=== PATIENT | female | born 1985 | race Caucasian/White ===

== ENCOUNTER 2018-09-27 12:35 | Emergency (ER) | payer BC ==
[2018-09-27 12:50] VITALS: BMI 27.1
[2018-09-27] MEDS ORDERED: Betamethasone Soluspan 30 mg/5mL Inj Susp IM ONE (12:50)
[2018-09-27 19:25] VITALS: TEMP 97.9
== END 2018-09-27 13:45 | disposition home or self-care (01) ==
LOC: H.EROB2 12:35
DX: O09.93 Supervision of high risk pregnancy, unspecified, third trimester (principal); Z23 Encounter for immunization; Z3A.36 36 weeks gestation of pregnancy
CPT/HCPCS: 96372; 99283; J0702

== ENCOUNTER 2018-10-04 04:08 | Inpatient (IN) | payer BC ==
[2018-10-04] MEDS: Lactated Ringer's 1,000 ML IV ONE ×2 (04:35→05:00)
[2018-10-04] MEDS ORDERED: ceFAZolin 1 GM in Sodium Chloride 0.9% 100 ML IVPB ONE (04:38)
[2018-10-04] MEDS ORDERED: OXYTOCIN/0.9 % NS 20 UNIT/1,000 ML BAG IV ONE (04:42)
[2018-10-04] MEDS ORDERED: Oxytocin 30 UNIT 30 UNITS/500 ML BAG IV ONE (04:42)
[2018-10-04 05:06] LABS: BASO % 0.4 % (0.0-2.0); EOS # 0.1 K/uL (0.0-0.7); EOS % 1.1 % (0.0-4.0); HEMOGLOBIN 13.5 g/dL (12.0-16.0); LYMPH # 2.4 K/uL (1.0-4.3); LYMPH % 23.4 % (20.0-40.0); MEAN CELL VOLUME 92.1 fl (81.0-99.0); MEAN CORPUSCULAR HEMOGLOBIN 30.3 pg (27.0-31.0); MEAN PLATELET VOLUME 9.7 fl (7.2-11.7); MONO # 0.6 K/uL (0.0-0.8); MONO % 5.8 % (0.0-10.0); NEUT # 7.1 K/uL (1.8-7.0); NEUT % 69.3 % (50.0-75.0); RBC 4.44 Mil/uL (3.80-5.20); RED CELL DISTRIBUTION WIDTH 13.2 % (11.5-14.5); WHITE BLOOD COUNT 10.3 K/uL (4.8-10.8)
[2018-10-04] MEDS ORDERED: Morphine 1 mg/ml preservative-free Inj(Duramorph) ONE (06:24)
--- NOTE | 2018-10-04 06:26 | OBADHP ---
Datetime: 10/04/2018 06:14 Admit Comment, IP Provider: @ 37.4 wks GA GDMA2 c/o ctx pian over 1 week, worsneing over past 1 day,q 5 min 02/28, sanjana lof, vb, +FM. pt is GDMA 2 on medicaion with icnreasing sughars. pt underwne t recent grwothscan and dx with arrest of growth. pt was evlauted by Navneet counseld fo dleiveyr OB: P0 RATE REVIEWER: denies PMH: GDMA2 PSH: denies FHX: non contibibe MEDS: PNV, metorfim NKDA SHX: negaive x 3 a/p @ 37.4 wks GA GDMA2 early labor for primary elective cxs admit npo, ivf adsison labs contp toco adn efm analgies blodo sticks FHR - Baseline A Provider: 145 Membranes, Provider: Intact Gestation - Est Wks by US: 37.4 IP Hx Assessment: The History has been Reviewed and is Current Vital Signs Provider: Reviewed IP Chief Complaint: Uterine contractions NICHD Variability Prov Fetus A: Moderate 6-25bpm NICHD Accel Fetus A IP Provider: 15X15 Dilatation, Provider: 1-2 Effacement, Provider: 50 Station, Provider: -3 EGA AdmitDate IP: 37.4 IP Adm Impression: Term, intrauterine IP Admit Plan: Admit to unit
[2018-10-04 06:59] LABS: ALB/GLOB RATIO 1.1 (1.0-2.1); ALBUMIN 3.9 g/dL (3.5-5.0); ALT/SGPT 28 U/L (9-52); AST/SGOT 26 U/L (14-36); BLOOD UREA NITROGEN 12 mg/dl (7-17); CALCIUM 10.2 mg/dL (8.4-10.2); GFR NON-AFRICAN AMERICAN > 60
[2018-10-04] MEDS ORDERED: Bisacodyl 5mg EC Tab PO PRN ×2 (07:14→09:42)
[2018-10-04] MEDS ORDERED: Naloxone 0.4 mg/ml Inj (Adult) IVP PRN ×2 (07:14→09:42)
[2018-10-04] MEDS ORDERED: Oxycodone/Acetaminophen 5/325 mg Tab PO PRN ×4 (07:14→09:42)
[2018-10-04] MEDS ORDERED: DiphenhydrAMINE 50 mg/ml Inj IVP PRN ×2 (07:14→09:42)
[2018-10-04] MEDS ORDERED: Multivitamin With Minerals Tab PO SCH (09:00)
[2018-10-04] MEDS ORDERED: Simethicone 80 mg Chewtab PO SCH (10:00)
[2018-10-04] MEDS: Simethicone 80 mg Chewtab PO SCH ×3 (12:00→22:18)
[2018-10-05] MEDS: Simethicone 80 mg Chewtab PO SCH ×4 (04:33→22:27)
[2018-10-05 05:58] LABS: HEMOGLOBIN 11.6 g/dL (12.0-16.0); MEAN CELL VOLUME 92.1 fl (81.0-99.0); MEAN CORPUSCULAR HEMOGLOBIN 29.9 pg (27.0-31.0); MEAN CORPUSCULAR HGB CONC 32.5 g/dL (33.0-37.0); RBC 3.88 Mil/uL (3.80-5.20); RED CELL DISTRIBUTION WIDTH 13.3 % (11.5-14.5); WHITE BLOOD COUNT 14.4 K/uL (4.8-10.8)
[2018-10-05 06:06] LABS: ALBUMIN 2.9 g/dL (3.5-5.0); ALT/SGPT 29 U/L (9-52); AST/SGOT 23 U/L (14-36); BLOOD UREA NITROGEN 6 mg/dl (7-17); CALCIUM 9.2 mg/dL (8.4-10.2); GFR NON-AFRICAN AMERICAN > 60
[2018-10-05] MEDS: Multivitamin With Minerals Tab PO SCH (08:54)
[2018-10-05] MEDS ORDERED: Ammonia 2% Inhalant ONE ×2 (09:56→10:07)
[2018-10-05] MEDS ORDERED: Ammonia 2% Inhalant INH PRN (14:08)
--- NOTE | 2018-10-05 20:10 | OBDS ---
DELIVERY PERSONNEL Delivery Doctor: Hayley Akhtar MD New Accounts Representative: Bailey Garcia RN Anesthesiologist: Dr Matos MATERNAL INFORMATION Delivery Anesthesia: Spinal Medications in Delivery: Ancef 1G Estimated Blood Loss (ml): 800 Placenta Cultured: Yes Maternal Complications: None RN Comments: patient delivered viable female via P c/s. infant was taken to warmer, dried and examin ed by Dr Sadler. infant taken to mother for skin to skin. patient tolerated well. both remained stable and were transferred to labor and delivery for recovery. Provider Comments: PTLCS girl , apargs 9,9 peids prsent for deliveyr nroam uteru, tubes and ovaries LABOR SUMMARY EDC: 10/21/2018 00:00 No. Babies in Womb: 1 LABOR INFORMATION Group B Beta Strep: Negative STAGES OF LABOR Stage 3 hrs: 0 Stage 3 min: 1 CSECTION DELIVERY Primary Indication: IUGR, GDM CSection Urgency: Elective CSection Incidence: Primary Labor: No Labor Elective: Elective CSection Incision: Lower Uterine Transverse BABY A INFORMATION Delivery Date/Time: 10/04/2018 06:47 Method of Delivery: Born in Route : No : N/A Forceps: N/A Vacuum Extraction: N/A Shoulder Dystocia : No SHOULDER DYSTOCIA BABY A Infant Delivery Date/Time: 10/04/2018 06:47 PRESENTATION/POSITION BABY A Presentation: Cephalic PLACENTA INFORMATION BABY A Placenta Delivery Time : 10/04/2018 06:48 Placenta Method of Delivery: Manual Removal Placenta Status: Delivered SCORES BABY A Heart Rate 1 min: >100 bpm Resp Effort 1 min: Good Cry Reflex Irritability 1 min: Cough or Sneeze or Pulls Away Muscle Tone 1 min: Active Motion Color 1 min: Body [place], Extremities Blue Resuscitation Effort 1 min: Tactile Stimulation SCORE 1 MIN: 9 Heart Rate 5 min: >100 bpm Resp Effort 5 min: Good Cry Reflex Irritability 5 min: Cough or Sneeze or Pulls Away Muscle Tone 5 min: Active Motion Color 5 min: Body [place], Extremities Blue Resuscitation Effort 5 min: N/A SCORE 5 MIN: 9 INFORMATION BABY A Gestational Age at Delivery: 37.4 Gestational Status: Term Infant Outcome : Liveborn Condition : Stable Sex: Female WEIGHT/LENGTH BABY A Infant Birthweight (gms): 2450 Weight (lb): 5 Infant Weight (oz): 6 Infant Length Inches: 17.00 Length cms: 43.2 CORD INFORMATION BABY A No. Cord Vessels: 3 Nuchal Cord : N/A Cord Blood Taken: Yes Infant Suction: Mouth
--- NOTE | 2018-10-05 20:12 | OBPPN ---
Datetime: 10/05/2018 20:09 PP Pain Prov: Within normal limits PP Nausea Prov: Denies PP Flatus Prov: Yes PP Breasts Prov: Normal PP Heart Prov: Normal PP Lungs Prov: Normal PP Abdomen/Uterus Prov: Normal PP Lochia Prov: Normal PP Vulva/Perineum Prov: Normal PP CVA Tenderness Prov: Normal PP Extremities Prov: Normal PP C/S Incision Prov: Normal PP Progress Prov: Normal PP Comments Phys Exam Prov: incicsn c/d'/i PP Impression Prov: Normal progression PP Plan Prov: Continue present management Vital Signs Provider PP: Reviewed; Within Normal Limits
--- NOTE | 2018-10-06 02:29 | OP ---
PROCEDURE DATE: 10/04/2018 PREOPERATIVE DIAGNOSES: Term intrauterine , GDMA2, arrest of growth. POSTOPERATIVE DIAGNOSES: Term intrauterine , GDMA2, arrest of growth. PROCEDURE PERFORMED: Primary low-transverse section. SURGEON: Hayley Akhtar MD ANESTHESIA: Spinal. OPERATIVE FINDINGS: Live female infant, Apgars 9 and 9, weight of 5 pounds and 6 ounces. Normal-appearing uterus, tubes, and ovaries. Dr. Dipesh Fernandez, surgical supplies sterilizer, who was present for the entire case and assisted in gaining entry, retraction, exposure, holding the bladder blade, helping the delivery of the baby, closing all layers. ESTIMATED BLOOD LOSS: 800 mL. BLOOD PRODUCTS: None. COMPLICATIONS: None. SPECIMEN: Placenta. DESCRIPTION OF PROCEDURE: The patient was taken to the operating room where she was given spinal anesthesia. Once it was found to be adequate, she was placed on the operating room table in dorsal supine position. The patient was prepped and draped in the usual sterile fashion. A time-out was confirmed correct patient and correct procedure. The patient was given preoperative prophylactic antibiotics. A Pfannenstiel skin incision was made with a scalpel and carried down to the underlying fascia with the Bovie. The fascia was incised in the midline. The incision was extended laterally with the Bovie. The inferior aspect of the fascial incision was grasped with Allis and Rock clamps, and the underlying rectus muscles were dissected off bluntly. Attention was then turned to the superior aspect of the incision in a similar fashion. It was grasped with Allis and Rock clamps, and the underlying rectus muscles were dissected off bluntly. The rectus muscles were then bluntly in the midline. The peritoneum was identified and entered in clear space. The incision was extended laterally and superiorly until there was good visualization of the bladder. The lower end of the Yasmin was then inserted. The vesicouterine peritoneum was incised with Metzenbaum scissors and extended laterally. A bladder flap was created digitally. The lower end of the Yasmin was then re-inserted. The lower uterine segment was incised in a transverse fashion and extended laterally with bandage scissors. The surgeon's hand entered the uterine cavity. The 's head was delivered atraumatically followed by delivery of the shoulders, followed by delivery of body. Both oral and nasal passages of the baby were bulb suctioned. The umbilical cord was clamped and cut. Baby was handed off to the awaiting digital project coordinator. Cord blood and cord gases were collected and sent x2. The placenta was then delivered manually. The uterus was cleared of all clots and debris. The uterine incision was repaired with a 0 Vicryl in a running continuous locked fashion. A second layer of same suture was used to close the uterus in a running imbricating manner. There was good hemostasis at the uterine incision site. The uterus was then returned to the abdomen. Pericolic gutters were cleared of all clots and debris. The peritoneum was reapproximated with 2-0 chromic in a running continuous fashion. The rectus was reapproximated with a 2-0 chromic in an interrupted manner. The fascia was reapproximated with 0 Vicryl in a running continuous fashion. The subcutaneous space was closed with a 2-0 plain in an interrupted manner, and the skin was reapproximated with a 4-0 Monocryl in a running subcuticular fashion. At the end of the procedure, all needle, sponge and instrument counts were noted to be correct x2. The patient tolerated the procedure well and was transferred to the recovery room in stable condition. Hayley Akhtar MD
[2018-10-06] MEDS: Simethicone 80 mg Chewtab PO SCH ×4 (04:55→22:59)
[2018-10-06 07:27] LABS: ALBUMIN 3.1 g/dL (3.5-5.0); ALT/SGPT 32 U/L (9-52); AST/SGOT 23 U/L (14-36); BLOOD UREA NITROGEN 8 mg/dl (7-17); CALCIUM 8.8 mg/dL (8.4-10.2); GFR NON-AFRICAN AMERICAN > 60
[2018-10-06] MEDS: Multivitamin With Minerals Tab PO SCH (09:58)
[2018-10-07] MEDS: Simethicone 80 mg Chewtab PO SCH ×2 (05:06→11:06)
[2018-10-07] MEDS: Multivitamin With Minerals Tab PO SCH (08:03)
[2018-10-07 19:38] VITALS: BP 129/81; PULSE 96; RESP 20; TEMP 98; O2SAT 99
== END 2018-10-07 13:30 | disposition home or self-care (01) | DRG 788 ==
LOC: EDBD → H.EROB2 04:08 → H.ERHOLD 04:41 → H.L&D 04:42 → H.OB/GYN 09:29
PROVIDERS: ADMIT Obstetrics & Gynecology; ATTEND Obstetrics & Gynecology
PROC: 10D00Z1 Extraction of Products of Conception, Low, Open Approach (ICD-10-PCS; principal; 2018-10-04)
PROC: 4A1HXCZ Monitoring of Products of Conception, Cardiac Rate, External Approach (ICD-10-PCS; 2018-10-04)
DX: O36.5930 Maternal care for other known or suspected poor fetal growth, third trimester, not applicable or unspecified (principal); O24.429 Gestational diabetes mellitus in childbirth, unspecified control; Z3A.37 37 weeks gestation of pregnancy; Z37.0 Single live birth